=== PATIENT | female | born 1990 | race Two or more races ===

== ENCOUNTER 2019-04-12 11:23 | Emergency (ER) | payer OTHER ==
[~2019-04-12] VITALS: Ht 165.1 cm; Wt 89.4 kg
[2019-04-12] MEDS ORDERED: PRENATABS FA T1 EACH (11:37)
== END 2019-04-12 15:25 | disposition home or self-care (01) ==
LOC: ER 11:23
DX: K52.9 Noninfective gastroenteritis and colitis, unspecified (principal)

== ENCOUNTER 2019-09-11 06:22 | Inpatient (IN) | payer OTHER ==
[~2019-09-11] VITALS: Ht 165.1 cm; Wt 2.3 kg
[~2019-09-11 06:22] MED LIST: PRENATABS FA T1 EACH
[2019-09-11] MEDS ORDERED: CHILDREN'S ASPI81 MG PO (09:51)
[2019-09-11] MEDS ORDERED: IRON325 MG PO (09:51)
== END 2019-09-14 15:31 | disposition home or self-care (01) | DRG 787 ==
LOC: OB/GYN 06:22 → LDR 06:22 → OB/GYN 12:21
PROVIDERS: ADMIT Specialist
PROC: 3E033VJ Introduction of Other Hormone into Peripheral Vein, Percutaneous Approach (ICD-10-PCS; 2019-09-11)
PROC: 4A1HXFZ Monitoring of Products of Conception, Cardiac Rhythm, External Approach (ICD-10-PCS; 2019-09-11)
PROC: 10D00Z1 Extraction of Products of Conception, Low, Open Approach (ICD-10-PCS; principal; 2019-09-11 07:00)
PROC: 30233N1 Transfusion of Nonautologous Red Blood Cells into Peripheral Vein, Percutaneous Approach (ICD-10-PCS; 2019-09-12)
DX: O30.043 Twin pregnancy, dichorionic/diamniotic, third trimester (principal); D62 Acute posthemorrhagic anemia; O32.1XX2 Maternal care for breech presentation, fetus 2; Z3A.38 38 weeks gestation of pregnancy; Z37.2 Twins, both liveborn

== ENCOUNTER 2019-12-18 08:06 | Outpatient (CLI) | payer OTHER ==
[~2019-12-18 08:06] MED LIST changes: +CHILDREN'S ASPI81 MG PO; +IRON325 MG PO
== END 2019-12-18 15:06 | disposition home or self-care (01) ==
LOC: LAB 08:06
DX: Z20.828 Contact with and (suspected) exposure to other viral communicable diseases (principal); R05 Cough; R06.2 Wheezing; R50.9 Fever, unspecified